=== PATIENT | female | born 1985 | race Caucasian/White ===

== ENCOUNTER → 2018-06-04 | Outpatient (CLI) | payer BC ==
--- NOTE | 2018-06-04 19:43 | Diagnostic Imaging Report ---
Right breast ultrasound limited. INDICATION: Right breast lump. There are no prior ultrasound studies available for comparison. FINDINGS: The diagnostic mammogram performed earlier today fail to show any sign of abnormality in the region of patient's palpable mass in the upper-outer quadrant of right breast. On this study, there is still no discrete solid or cystic mass visualized. It may be that the palpable abnormality in question is related to fibroglandular tissue alone. However, if clinical concern regarding a palpable abnormality persists, then biopsy should still be considered. IMPRESSION: There is no evidence for malignancy. Clinical followup is recommended. ACR BI-RADS Category 1: Negative. Dictated by: Dictated on workstation # [id number]
--- NOTE | 2018-06-05 21:09 | Diagnostic Imaging Report ---
EXAMINATION: Unilateral diagnostic right mammogram with 3D tomosynthesis. INDICATION: Right breast lump. The current study was also evaluated with a Computer Aided Detection (CAD) system. FINDINGS: This is the patient's baseline study. At this time, she notes a lump in the upper-outer quadrant of the right breast. A marker was placed in the area of concern. There is no primary or secondary sign of malignancy in this area. Even so, ultrasound would be recommended for further study. There are scattered fibroglandular densities in the right breast which could obscure a lesion. There is no primary or secondary sign of malignancy noted. An MLO view of the left breast was also performed. There are also scattered fibroglandular densities in the left breast. There is no primary or secondary sign of malignancy noted. IMPRESSION: There is no evidence for malignancy. Ultrasound would be recommended for further evaluation, however. ACR BI-RADS Category 0: Incomplete. (Needs additional imaging evaluation). Result letter will be mailed to the patient. Note: At least 10% of breast cancer is not imaged by mammography. Dictated by: Dictated on workstation # [id number]
== END ==
LOC: RAD 11:03
PROVIDERS: ATTEND Nurse Practitioner
DX: N63.10 Unspecified lump in the right breast, unspecified quadrant (principal)